=== PATIENT | female | born 1960 | race Caucasian/White ===

== ENCOUNTER 2017-04-14 11:44 | Day surgery (SDC) | payer BC ==
[2017-04-13 15:44] LABS: HEMATOCRIT 37.3 % (36.0-48.0); HEMOGLOBIN 12.3 g/dL (12.0-16.0)
--- NOTE | ~2017-04-14 | OP ---
Record Of Operation [facility] [address] [place]. [address] NAME: DESHAWN SALINAS : 64 STATUS : [facility]#: [id number] AGE: 56 ADM/REG DATE : 04/14/17 MR#: [id number] REPORT SERV DATE: 04/19/17 DICTATED BY: Tova BOO DATE: 04/18/17 REPORT STATUS : Draft TRANSCRIBED BY: TALIA DATE: 04/18/17 DATE OF PROCEDURE: 04/14/2017 PREOPERATIVE DIAGNOSIS: Mass, left nasofacial lryrdu-awns-ampie nose-left cheek-left lower eyelid medially, uncertain behavior. POSTOPERATIVE DIAGNOSES: Mass, left nasofacial favxfg-ampf-altby nose-left cheek-left lower eyelid medially, uncertain behavior; hemangioma on frozen section, permanent path pending. FINDINGS: A 2.5 cm indistinct mass of the left nasofacial sulcus with areas of dark-blue discoloration; frozen section appeared to be a benign hemangioma. INDICATIONS: This 56-year-old female presented to the office recently stating that she had the acute onset of the mass appearing in the left side of her nose-left medial cheek that came up rapidly in the early part of this month. It has been nontender. She states as a child, she had a cyst removed in that area. The mass that she has is nontender. There is some slight yellowish discoloration to the skin. The mass seems mobile. This appears to be a benign cyst. She understands the pros and cons, alternatives, benefits, risks, limitations, and complications including, but not limited to scarring, recurrence of the mass, need for additional surgeries, suture reaction, infection, imponderables. She wished to proceed. Proper consent obtained. No guarantees expressed. DESCRIPTION OF PROCEDURE: She was taken into the operating room and given general oral endotracheal anesthesia in the supine position. Her face and neck were prepped with Hibiclens and saline followed by isopropyl alcohol except around the eye where diluted Betadine "tea." Sterile drapes were applied. An incision was marked out in the nasofacial sulcus, and then the left side of the nose, left cheek, left lower eyelid were injected with 1% Xylocaine with 1:100,000 epinephrine and 0.5% Marcaine with 1:200,000 epinephrine. Five minutes elapsed for vasoconstriction. Incision was made down through the skin and subcutaneous fat until the indistinct mass was palpated and encountered. There was no distinct capsule. It appeared to be invading the adjacent musculature of the nasal sidewall. With one sharp dissection, the mass was removed. It was given to the pathologist in the room along with the clinical history. Frozen section returned showing this to be a hemangioma. Permanent path would be pending. Hemostasis was obtained with electrocautery. The wound was closed in a layered fashion with 5-0 and 6-0 Vicryl deep. The skin edges were coapted with 6-0 Prolene. Because there was considerable space, the wounds were cleansed with hydrogen peroxide and dried, then treated with Mastisol and paper tape, and an extended nasal splint was applied to put pressure on the nasofacial sulcus. This was a padded metal (aluminum). Nasal splint used for nasal fractures. The patient tolerated the procedure well. Estimated blood loss was 3 mL. She was awakened, extubated, and taken to the recovery room in good condition having tolerated the procedure well. Home-going instructions included prescription for cephalexin 500 mg #20, one p.o. b.i.d.; hydrocodone for pain; and Zofran for nausea. Recheck in the office in six days. She is to leave the dressing dry and intact. I have instructed her to stay off work because she does tremendous amount of talking, which would edge take the cheek and nasofacial sulcus and Record Of Operation [address] [address] NAME: DESHAWN SALINAS : 64 STATUS : [facility] PAT#: [id number] AGE: 56 ADM/REG DATE : 04/14/17 MR#: [id number] REPORT SERV DATE: 04/19/17 DICTATED BY: Tova BOO DATE: 04/18/17 REPORT STATUS : Draft TRANSCRIBED BY: TALIA DATE: 04/18/17 contribute to possible hematoma formation. She will be off for one to two weeks. HUSSAIN/TALIA Tova Boo M.D. / [id number] CC: Gela Mckeon M.D.
[~2017-04-14 11:44] MED LIST: FISH-EPA1000 MG PO; FOLIC PO; HUMIRA PEN SC; MTX2.5 PO; MULTIPLE VIT PO
== END 2017-04-14 17:53 | disposition home or self-care (01) ==
LOC: SDC 11:44
PROVIDERS: Specialist
PROC: 0JB10ZZ Excision of Face Subcutaneous Tissue and Fascia, Open Approach (ICD-10-PCS; principal; 2017-04-14 13:15)
DX: D18.01 Hemangioma of skin and subcutaneous tissue (principal); M06.9 Rheumatoid arthritis, unspecified; D49.2 Neoplasm of unspecified behavior of bone, soft tissue, and skin; Z88.7 Allergy status to serum and vaccine; Z87.891 Personal history of nicotine dependence; Z90.710 Acquired absence of both cervix and uterus; Z90.49 Acquired absence of other specified parts of digestive tract; Z98.51 Tubal ligation status; Z79.2 Long term (current) use of antibiotics; Z79.899 Other long term (current) drug therapy; Z98.890 Other specified postprocedural states
CPT/HCPCS: 70488-CT; 85014; 85018; 88305; 88331; 93005; A9270-GY; J0690; J2250; J2370; J2405; J2710; J3010; Q9967